=== PATIENT | female | born 1990 | race Caucasian/White ===

== ENCOUNTER 2020-07-05 14:03 | Outpatient (CLI) | payer OTHER, SELFPAY ==
[2020-07-05 19:04] LABS: Basophils Percent Auto 0.3 % (0.2-1.2); Eosinophils Absolute Auto 0.1 K/mm3 (0-0.3); Eosinophils Percent Auto 1.3 % (0-4.4); Hematocrit 43.3 % (37.0-47.0); Hemoglobin 14.6 g/dL (12.0-15.0); Immature Granulocyte Absolute 0.02 K/mm3 (0.00-0.031); Immature Granulocyte Percent A 0.3 % (0-0.5); Lymphocytes Absolute Auto 1.27 K/mm3 (0.9-3.2); Lymphocytes Percent Auto 17.7 % (18.3-44.2); Mean Corpuscular HGB Conc 33.7 g/dl (32-36); Mean Corpuscular Hemoglobin 30.5 pg (26-34); Mean Corpuscular Volume 90.6 fl (80-100); Mean Platelet Volume 11.4 fl (7.4-10.4); Monocytes Absolute Auto 0.5 K/mm3 (0.1-0.6); Monocytes Percent Auto 6.7 % (2.6-8.5); Neutrophils Absolute Auto 5.3 K/mm3 (1.3-6.7); Neutrophils Percent Auto 73.7 % (45.5-73.1); Platelet Count Result 194 k/mm3 (150-375); Red Blood Count 4.78 M/mm3 (4.2-5.4); Red Cell Distribution Width 12.1 % (11.5-14.5); White Blood Count 7.2 K/mm3 (4.5-10.0)
== END 2020-07-05 14:04 | disposition home or self-care (01) ==
PROVIDERS: PCP Internal Medicine; Visit Provider Obstetrics & Gynecology
DX: N92.1 Excessive and frequent menstruation with irregular cycle (principal)
CPT/HCPCS: 36415; 84443; 85025

== ENCOUNTER 2020-12-07 14:09 | Outpatient (CLI) | payer OTHER, SELFPAY ==
[2020-12-07 20:05] LABS: Hematocrit 42.9 % (37.0-47.0); Hemoglobin 14.4 g/dL (12.0-15.0); Mean Corpuscular HGB Conc 33.6 g/dl (32-36); Mean Corpuscular Hemoglobin 30.4 pg (26-34); Mean Corpuscular Volume 90.7 fl (80-100); Mean Platelet Volume 11.1 fl (7.4-10.4); Platelet Count Result 217 k/mm3 (150-375); Red Blood Count 4.73 M/mm3 (4.2-5.4); Red Cell Distribution Width 12.3 % (11.5-14.5); White Blood Count 5.3 K/mm3 (4.5-10.0)
== END 2020-12-07 14:10 | disposition home or self-care (01) ==
LOC: ANHBWCLAB 14:11
PROVIDERS: PCP Internal Medicine; Visit Provider Obstetrics & Gynecology
DX: N92.1 Excessive and frequent menstruation with irregular cycle (principal)
CPT/HCPCS: 36415; 84443; 85027

== ENCOUNTER → 2021-12-14 15:19 | Outpatient (CLI) | payer BC, SELFPAY ==
--- NOTE | ~2021-12-14 | US_ITS ---
EXAMINATION: US OB <= 14 weeks fetus DATE: 12/14/2021 15:44 INDICATION: First trimester dating TECHNIQUE: Real-time pelvic transabdominal and transvaginal ultrasound was performed. COMPARISON: None. FINDINGS: The uterus measures 10.9 x 6.8 x 9.3 cm. There is an intrauterine gestational sac. There i s a 1.3 x 0.5 x 0.7 cm hypoechoic area adjacent to the gestational sac. A yolk sac is identified. Fet al heart motion is identified measuring 179 beats per minute (bpm) by M-mode Doppler. The crown rump length measures 4 cm , which correlates with an estimated gestational age of 10 weeks and 6 day (s) (+/-) 7 day(s). The right ovary is not visualized however no right adnexal abnormality is seen. The left ovary measur es 2.3 x 1.4 x 2.1 cm. There is normal vascular flow in the left ovary. There is no free fluid in the pelvis. IMPRESSION: 1. Live intrauterine with an estimated gestational age of 10 weeks and 6 day(s) (+/-) 7 day (s) and an estimated delivery date of 07/06/2022. 2. Small subchorionic hematoma. Reviewed, dictated and finalized at location A. IMPRESSION: 1. Live intrauterine with an estimated gestational age of 10 weeks an d 6 day(s) (+/-) 7 day(s) and an estimated delivery date of 07/06/2022. 2. Small subchorionic hematoma.
== END ==
PROVIDERS: PCP Student in an Organized Health Care Education/Training Program; Visit Provider Student in an Organized Health Care Education/Training Program
DX: Z32.01 Encounter for pregnancy test, result positive (principal); Z3A.10 10 weeks gestation of pregnancy
CPT/HCPCS: 76801

== ENCOUNTER 2022-02-01 16:06 | Outpatient (CLI) | payer BC, SELFPAY ==
[2022-02-01 18:02] LABS: HIV 1/2 Ab P24 Ag Result Negative (Negative)
== END 2022-02-01 16:07 | disposition home or self-care (01) ==
LOC: ANHLAB 16:08
PROVIDERS: Visit Provider Student in an Organized Health Care Education/Training Program
DX: Z34.90 Encounter for supervision of normal pregnancy, unspecified, unspecified trimester (principal); Z3A.00 Weeks of gestation of pregnancy not specified
CPT/HCPCS: 36415; 86703; 86850; 86900; 86901; G0432

== ENCOUNTER 2022-04-14 09:35 | Outpatient (CLI) | payer BC, SELFPAY ==
[2022-04-14 11:28] LABS: Basophils Percent Auto 0.3 % (0.2-1.2); Eosinophils Absolute Auto 0.1 K/mm3 (0-0.3); Eosinophils Percent Auto 0.8 % (0-4.4); Hematocrit 31.6 % (37.0-47.0); Hemoglobin 10.3 g/dL (12.0-15.0); Immature Granulocyte Absolute 0.13 K/mm3 (0.00-0.031); Immature Granulocyte Percent A 1.7 % (0-0.5); Lymphocytes Absolute Auto 1.16 K/mm3 (0.9-3.2); Lymphocytes Percent Auto 15.1 % (18.3-44.2); Mean Corpuscular HGB Conc 32.6 g/dl (32-36); Mean Corpuscular Hemoglobin 28.5 pg (26-34); Mean Corpuscular Volume 87.5 fl (80-100); Mean Platelet Volume 9.6 fl (7.4-10.4); Monocytes Absolute Auto 0.4 K/mm3 (0.1-0.6); Monocytes Percent Auto 4.6 % (2.6-8.5); Neutrophils Percent Auto 77.5 % (45.5-73.1); Platelet Count Result 193 k/mm3 (150-375); Red Blood Count 3.61 M/mm3 (4.2-5.4); Red Cell Distribution Width 13.3 % (11.5-14.5); White Blood Count 7.7 K/mm3 (4.5-10.0)
[2022-04-14 11:37] LABS: Glucose 1 Hour PP 50gm Dose 107 mg/dL
== END 2022-04-14 09:36 | disposition home or self-care (01) ==
LOC: ANHLAB 09:35
PROVIDERS: Visit Provider Student in an Organized Health Care Education/Training Program
DX: Z34.82 Encounter for supervision of other normal pregnancy, second trimester (principal); Z3A.00 Weeks of gestation of pregnancy not specified
CPT/HCPCS: 36415; 82947; 85025

== ENCOUNTER 2022-05-10 16:55 | Outpatient (CLI) | payer BC, SELFPAY ==
[2022-05-10 17:16] LABS: Basophils Percent Auto 0.2 % (0.2-1.2); Eosinophils Percent Auto 0.2 % (0-4.4); Hematocrit 32.4 % (37.0-47.0); Hemoglobin 10.4 g/dL (12.0-15.0); Immature Granulocyte Absolute 0.05 K/mm3 (0.00-0.031); Immature Granulocyte Percent A 0.6 % (0-0.5); Lymphocytes Absolute Auto 1.26 K/mm3 (0.9-3.2); Lymphocytes Percent Auto 15.4 % (18.3-44.2); Mean Corpuscular HGB Conc 32.1 g/dl (32-36); Mean Corpuscular Hemoglobin 27.4 pg (26-34); Mean Corpuscular Volume 85.3 fl (80-100); Mean Platelet Volume 9.9 fl (7.4-10.4); Monocytes Absolute Auto 0.5 K/mm3 (0.1-0.6); Monocytes Percent Auto 6.2 % (2.6-8.5); Neutrophils Absolute Auto 6.3 K/mm3 (1.3-6.7); Neutrophils Percent Auto 77.4 % (45.5-73.1); Platelet Count Result 134 k/mm3 (150-375); Red Cell Distribution Width 14.6 % (11.5-14.5); White Blood Count 8.2 K/mm3 (4.5-10.0)
[2022-05-10 18:06] LABS: HIV 1/2 Ab P24 Ag Result Negative (Negative)
[2022-05-11 11:57] LABS: Rapid Plasma Reagin Non-Reactive (NonReactive)
== END 2022-05-10 16:56 | disposition home or self-care (01) ==
LOC: ANHLAB 16:57
PROVIDERS: Visit Provider Obstetrics & Gynecology
DX: Z34.83 Encounter for supervision of other normal pregnancy, third trimester (principal); Z3A.00 Weeks of gestation of pregnancy not specified
CPT/HCPCS: 36415; 85025; 86592; 86703; G0432

== ENCOUNTER 2022-07-01 23:51 | Inpatient (IN) | payer BC, SELFPAY ==
--- NOTE | 2022-07-01 23:51 | LDADM ---
This patient, Consuelo Aquino, was admitted to Labor/Delivery/Recovery 104 on 07/01/22 at 23:51. Plans for labor, pain management and were discussed with patient. Patient/family oriented to hospital policies and general routines including ID bracelet, bed and alarms, visiting hours, pain management, procedures, bathroom and other care routines, personal items, smoking policy, room service/diet and guest tray routines, infant security routines, and visiting hours. Patient/Family are encouraged to report perceived risks to care and to ask questions if they do not understand what they are told or what they should do. See OBIX for further documentation.
[2022-07-02] VITALS (109 sets, daily range): BP systolic 92–141; BP diastolic 52–100; PULSE 61–194; RESP 16–18; TEMP 36.4–36.8; O2SAT 96–100; BMI 27.1
[2022-07-02] MEDS: DINOPROSTONE 10 MG VAG INSERT VAGINAL (00:36)
[2022-07-02 00:51] LABS: Basophils Percent Auto 0.1 % (0.2-1.2); Eosinophils Absolute Auto 0.1 K/mm3 (0-0.3); Eosinophils Percent Auto 1.6 % (0-4.4); Hematocrit 34.8 % (37.0-47.0); Hemoglobin 11.4 g/dL (12.0-15.0); Immature Granulocyte Absolute 0.05 K/mm3 (0.00-0.031); Immature Granulocyte Percent A 0.7 % (0-0.5); Immature Platelet Fraction Pct 10.3 % (0.9-11.2); Lymphocytes Absolute Auto 1.67 K/mm3 (0.9-3.2); Lymphocytes Percent Auto 22.8 % (18.3-44.2); Mean Corpuscular HGB Conc 32.8 g/dl (32-36); Mean Corpuscular Hemoglobin 27.5 pg (26-34); Mean Corpuscular Volume 83.9 fl (80-100); Mean Platelet Volume 11.2 fl (7.4-10.4); Monocytes Absolute Auto 0.4 K/mm3 (0.1-0.6); Monocytes Percent Auto 5.7 % (2.6-8.5); Neutrophils Absolute Auto 5.1 K/mm3 (1.3-6.7); Neutrophils Percent Auto 69.1 % (45.5-73.1); Platelet Count Result 143 k/mm3 (150-375); Red Blood Count 4.15 M/mm3 (4.2-5.4); Red Cell Distribution Width 16.9 % (11.5-14.5); White Blood Count 7.3 K/mm3 (4.5-10.0)
[2022-07-02] MEDS: FAMOTIDINE 20 MG/2 ML VIAL IV PUSH (05:30)
[2022-07-02] MEDS: LACTATED RINGERS 1,000 ML 125 ML IV CONT ×2 (06:58→08:12)
--- NOTE | 2022-07-02 07:16 | WPDANESEPP ---
Anes - Eval Pre Procedure Procedure: labor epidural Date/Time: 07/02/22 07:16 Surgeon: johann Preop Diagnosis: pain during labor Pre Op Diagnosis: IOL Patient Data Age: 32 Gender: F Height: 1.73 m Weight: 81 kg Last Vital Signs Temp 36.6 C 07/02/22 03:00 Pulse 91 07/02/22 07:01 Resp 17 07/02/22 03:00 BP 128/88 07/02/22 07:01 O2 Del Method Room Air 07/02/22 00:22 Allergies Allergy/AdvReac Type Severity Reaction Status Date / Time codeine Allergy Nausea Verified 07/02/22 00:27 Penicillins Allergy Hives, Verified 07/02/22 00:27 itching Home Medications Medication Instructions Recorded Confirmed Type prenat.vits,ross,rpb-ladu-wppib 1 tablet PO DAILY 12/05/21 07/02/22 History ferrous sulfate 325 mg (65 mg 325 mg PO DAILY #90 tabs 04/16/22 06/12/22 Rx iron) tablet Laboratory Tests 07/02/22 07/02/22 07/02/22 00:34 00:34 00:34 WBC 7.3 K/mm3 K/mm3 (4.5-10.0) RBC 4.15 M/mm3 L M/mm3 (4.2-5.4) Hgb 11.4 g/dL L g/dL (12.0-15.0) Hct 34.8 % L % (37.0-47.0) MCV 83.9 fl fl (80-100) MCH 27.5 pg pg (26-34) MCHC 32.8 g/dl g/dl (32-36) RDW 16.9 % H % (11.5-14.5) Plt Count 143 k/mm3 L k/mm3 (150-375) MPV 11.2 fl H fl (7.4-10.4) Immature Gran % (Auto) 0.7 % H % (0-0.5) Neut % (Auto) 69.1 % % (45.5-73.1) Lymph % (Auto) 22.8 % % (18.3-44.2) [place] % (Auto) 5.7 % % (2.6-8.5) Eos % (Auto) 1.6 % % (0-4.4) Baso % (Auto) 0.1 % L % (0.2-1.2) Lymph # (Auto) 1.67 K/mm3 K/mm3 (0.9-3.2) [place] # (Auto) 0.4 K/mm3 K/mm3 (0.1-0.6) Eos # (Auto) 0.1 K/mm3 K/mm3 (0-0.3) Baso # (Auto) 0.0 K/mm3 K/mm3 (0.0-0.1) Abs Immat Gran (auto) 0.05 K/mm3 H K/mm3 (0.00-0.031) Absolute Neuts (auto) 5.1 K/mm3 K/mm3 (1.3-6.7) Absolute Nucleated RBC 0.0 K/mm3 K/mm3 (0.0-0.012) Nucleated RBC % 0.0 % % (0.0-0.2) % Immature Plt Fraction 10.3 % % (0.9-11.2) RPR Pending Blood Type O Positive Antibody Screen Negative Patient hx anesthesia problems: none Family hx anesthesia problems: none Results Review: All pre-operative results and documents have been reviewed as part of the pre-operative evaluation. [facility] Past Medical History Medical History History of gastroesophageal reflux (GERD) Migraines Missed x1 Vaginal delivery x1 Surgical History Surgical History History of dilation and curettage 2014 [place] teeth removed Family History Family History Grandparent Diabetes mellitus Heart problem Cancer Brain tumor Father Diabetes mellitus Mother Hyperthyroidism Hypertension Grandparent Pacemaker Social History Social History Smoking status: Never smoker Alcohol intake: current Drinks per week: 1 Substance use: never Lack of Transportation: No Lack of Food: Never True Current Housing: I Have Housing Concerned About Future Housing: No Difficulty Paying Gas/Electric Bills: No Difficulty Paying for Meds: No Currently Unemployed: No Education: Bachelor's Degree Difficulty w/ Childcare or Family Care: No Spiritual care concerns: No Exam Day of Procedure 07/02/22 07:16
[2022-07-02 08:12] LABS: Rapid Plasma Reagin Non-Reactive (NonReactive)
[2022-07-02] MEDS: OXYTOCIN 30 UNITS/NS 500 ML 30 UNITS/500 ML BAG IV CONT (09:47)
[2022-07-02] MEDS: OXYTOCIN 30 UNITS/NS 500 ML 30 UNITS/500 ML BAG 125 UNITS IV CONT (11:33)
[2022-07-02] MEDS: BENZOCAINE 20% AER SPR (*SP) 56 GM CAN 1 SPRAY TOPICAL (13:12)
[2022-07-02] MEDS: WITCH HAZEL 40 PADS 1 PAD TOPICAL (13:12)
--- NOTE | 2022-07-02 14:34 | OBPPTRN ---
1329 Patient transferred to post room #281 via W/C. Support person present. Oriented to unit, room, information board, rooming in, admission packet and security measures. Patient verbalizes understanding.
[2022-07-02] MEDS: IBUPROFEN 600 MG TABLET PO (18:41)
--- NOTE | 2022-07-02 23:26 | PM.IMHP ---
H&P: HPI History of Present Illness Date/Time: 07/02/22 23:26 Chief Complaint: Medical induction of labor Narrative: Patient at 39 weeks admitted for MIL. Labs reviewed. She has been informed or risk benefit of MIL vs spontaneous onset of labor and has opted for MIL. Review of Systems Review of Systems: All systems reviewed & are unremarkable except as noted in HPI and below Constitutional: Constitutional: Reports no additional constitutional complaints and Denies headache(s) Eyes: Eyes: Denies spots in vision ENT: Reports system reviewed and no additional complaints, except as documented and Denies headache(s) Cardiovascular: Cardiovascular: Denies chest pain and Denies dyspnea Respiratory: Respiratory: Denies dyspnea Gastrointestinal: Gastrointestinal: Reports no additional gastrointestinal complaints Genitourinary: Genitourinary: Reports amenorrhea Musculoskeletal: Musculoskeletal: Reports no additional musculoskeletal complaints Integumentary/Breasts: Skin/Breast: Denies breast mass and Denies rash Neurologic: Denies headache(s) Psychiatric: Psychiatric: Reports no additional psychiatric complaints PMFSH Past Medical History Medical History History of gastroesophageal reflux (GERD) Migraines Missed x1 Vaginal delivery x1 Surgical History Surgical History History of dilation and curettage 2014 [place] teeth removed Family History Family History Grandparent Diabetes mellitus Heart problem Cancer Brain tumor Father Diabetes mellitus Mother Hyperthyroidism Hypertension Grandparent Pacemaker Social History Social History Smoking status: Never smoker Alcohol intake: current Drinks per week: 1 Substance use: never Lack of Transportation: No Lack of Food: Never True Current Housing: I Have Housing Concerned About Future Housing: No Difficulty Paying Gas/Electric Bills: No Difficulty Paying for Meds: No Currently Unemployed: No Education: Bachelor's Degree Difficulty w/ Childcare or Family Care: No Spiritual care concerns: No Meds Home Medications and Allergies Home Medications Medication Instructions Recorded Confirmed Type prenat.vits,ross,qdu-tidz-gpqih 1 tablet PO DAILY 12/05/21 07/02/22 History ferrous sulfate 325 mg (65 mg 325 mg PO DAILY #90 tabs 04/16/22 06/12/22 Rx iron) tablet Allergies Allergy/AdvReac Type Severity Reaction Status Date / Time codeine Allergy Nausea Verified 07/02/22 00:27 Penicillins Allergy Hives, Verified 07/02/22 00:27 itching Vital Signs Vital Signs - 24 hr 07/02/22 00:09 07/02/22 00:16 07/02/22 00:31 Temperature Pulse Rate 85 91 78 Respiratory Rate Blood Pressure 137/89 133/84 131/100 H Pulse Oximetry Oxygen Delivery 07/02/22 00:46 07/02/22 00:30 07/02/22 01:01 Temperature 98.3 F Pulse Rate 81 83 Respiratory Rate 16 Blood Pressure 123/72 118/72 Pulse Oximetry Oxygen Delivery 07/02/22 01:16 07/02/22 01:31 07/02/22 01:46 Temperature Pulse Rate 76 80 79 Respiratory Rate Blood Pressure 111/64 121/74 120/74 Pulse Oximetry Oxygen Delivery 07/02/22 02:01 07/02/22 02:16 07/02/22 02:32 Temperature Pulse Rate 84 83 89 Respiratory Rate Blood Pressure 119/78 117/72 110/73 Pulse Oximetry Oxygen Delivery 07/02/22 02:46 07/02/22 05:31 07/02/22 03:00 Temperature 97.9 F Pulse Rate 85 80 Respiratory Rate 17 Blood Pressure 124/91 H 131/84 Pulse Oximetry Oxygen Delivery 07/02/22 06:57 07/02/22 07:01 07/02/22 07:17 Temperature Pulse Rate 85 91 Respiratory Rate Blood Pressure 121/72 128/88 Pulse Oximetry 99 Oxygen Delivery 07/02/22 07:19 07/02/22 07:
--- NOTE | 2022-07-02 23:32 | PM.OBPNLAB ---
Pain Control Date/time seen: 07/02/22 0800 fht 135, cat 1, cervix /- AROM clear.
--- NOTE | 2022-07-02 23:34 | P.PCNOB_ITS ---
OB - Delivery Note Procedure Delivery date: 07/02/22 Procedure: spontaneous vaginal delivery Induction method: Per Cervidil Protocol Delivery augmentation: Rupture of Membranes Delivery monitor: External FHT Route of delivery: Laceration Description: Superficial (labia minora and majora hemostatic no suture needed) Specimen: No Quantitative Blood Loss (ml): 200 Anesthesia type: Epidural Disposition: Floor Complications: None Narrative: She was admitted for [facility] at 39 weeks. She had cervidil. Cervidil removed. She progressed into active labor. AROM clear. She had an uncomplicated vaginal delivery. Baby Date of : 07/02/22 Time of : 10:57 Weeks of gestation at delivery: 39 Infant gender: Male Weight (pounds): 7 Weight (ounces): 14 presentation: vertex position: Right Occiput Anterior Placenta delivery description: Spontaneous Cord Vessel Description: 3 Vessels, Clamped/Cut and Delayed Cord Clamping score one minute: 9 score five minutes: 9 AMG Delivery Billing Delivery Delivery: Delivery Charge
[2022-07-03 04:12] VITALS: BP 128/76; PULSE 63; RESP 16; TEMP 36.7; O2SAT 100
[2022-07-03 05:11] LABS: Hematocrit 32.2 % (37.0-47.0); Hemoglobin 10.3 g/dL (12.0-15.0)
[2022-07-03 07:45] VITALS: BP 121/80; PULSE 64; RESP 16; TEMP 36.6; O2SAT 100
[2022-07-03] MEDS: DOCUSATE SODIUM 100 MG CAPSULE PO (08:53)
[2022-07-03] MEDS: MULTIVIT/MIN/PREN/FOL AC/IRON TABLET 1 TAB PO (08:53)
--- NOTE | 2022-07-03 10:13 | PM.OBPNVD ---
OB - PN: Subj Subjective Date/time seen: 07/03/22 10:13 Patient comments: pain well controlled, tolerating diet and other (Decreasing lochia.) [place] baby status: doing well feeding status: exclusively bottle feeding OB - PN: Obj Data Labs 07/03/22 04:07 Labs: Laboratory Results - last 24 hr 07/03/22 04:07 Hgb 10.3 L Hct 32.2 L OB - PN A/P Assessment and Plan (1) Vaginal delivery: Code(s): O80 - Encounter for full-term uncomplicated delivery Status: Acute Assessment and Plan: PPD1. She is doing well. Baby is doing well. She request discharge. Discharge precautions discussed. Plan day: 1 Plan: routine care Comments: Patient doing well. Asymptomatic anemia. Continue routine care. Time Spent With Patient Time: Total time spent is greater than 50% in coordination of care (as documented) at patient's floor/unit and/or counseling patient: Review of Systems Review of Systems: All systems reviewed & are unremarkable except as noted in HPI and below Constitutional: Constitutional: Reports no additional constitutional complaints Cardiovascular: Cardiovascular: Denies dyspnea Respiratory: Respiratory: Denies dyspnea Gastrointestinal: Gastrointestinal: Reports no additional gastrointestinal complaints and Denies abdominal pain Genitourinary: Genitourinary: Reports no additional female genitourinary complaints Exam Const: General: no acute distress, alert and awake Resp: Effort & Inspection: normal respiratory effort GI: GI Palp: No Tenderness to palpation present (GI) Other: Fundus nontender, below umbilicus Psych: Appearance: grossly normal Affect: normal affect Other: Abd: fundus firm below umbilicus, nontender Ext: nontender
--- NOTE | 2022-07-03 10:15 | PM.OBDSVD ---
DS: Admitting Diagnosis Discharge Date 07/03/22 Admitting Diagnosis Medical induction of labor DS: Discharge Diagnosis Discharge Diagnosis Plan Intrauterine - vaginal delivery. OB - DS: Summary OB Procedures : Ultrasound OB Procedures Intrapartum: Spontaneous Vag Delivery OB Procedures: : None Peripartum Data Delivery Method: Natural Vaginal Laceration Description: Superficial complications: none Status at Discharge Functional status at discharge: independent ambulation Time Spent with Patient Time attestation: Total time spent providing and/or coordinating discharge services: Exam Const: General: cooperative Orientation/consciousness: oriented to person, oriented to place and oriented to time HENMT: Face/Nose/Sinus: Normal external nose present Eyes: General: appearance normal, both eyes and all related structures Resp: Effort & Inspection: normal respiratory effort GI: Inspection: normal to inspection Skin: General skin exam: normal color Neuro: General: oriented to person, oriented to place and oriented to time Extrem: General: normal to inspection and no calf tenderness Psych: Appearance: grossly normal Mental Status: mental status grossly normal DS: Data Data Completed and Pending Labs on day of discharge: Labs from last 24 hours 07/03/22 04:07 Hgb 10.3 L Hct 32.2 L Discharge Plan Discharge Attending physician on discharge: Jonathan Salmon Consulting providers: Annemarie Kim Discharging Clinician: Jonathan Salmon Anticipated Discharge Date/Time: 07/03/22 11:00 Patient Disposition: Home, Self-Care Activity: may shower, no straining and pelvic rest Diet: regular Discharge Instructions: Take daily vitamin. Patient Instructions: Antibiotic Form, Vaginal Delivery (DC), Vaginal Delivery (GEN) Stand Alone Forms: General Discharge Information Follow-up/Referrals: Jonathan Salmon MD [Physician] - 4 Weeks (call for appointment) Discharge Medications: Continued prenat.vits,ross,whv-sotb-fterm Tablet 1 tablet PO DAILY Discontinued ferrous sulfate 325 mg (65 mg iron) tablet 325 mg PO DAILY Qty: 90 0RF Date of admission: 07/01/22 23:51 Primary Care Provider: PHYSICIAN,SUPERVISOR MODERN LANGUAGES Admitting Provider: Jonathan Salmon Attending physician on admission: Jonathan Salmon Condition: Stable
--- NOTE | 2022-07-03 13:24 | WPDANLDPN2 ---
Anes-Prog Note L&D Date/Time: 07/03/22 13:24 Neuro status: Neuro function grossly intact. Vital Signs: Last Vital Signs Temp 36.6 C 07/03/22 07:45 Pulse 64 07/03/22 07:45 Resp 16 07/03/22 07:45 BP 121/80 07/03/22 07:45 Pulse Ox 100 07/03/22 07:45 O2 Del Method Room Air 07/03/22 08:50 Pain score (VAS): 0 I/O: Intake & Output 07/02/22 07/03/22 07/03/22 23:59 07:59 15:59 Intake Total 300 Balance 300 Patient feedback: Patient satisfied with anesthetic care.
--- NOTE | 2022-07-03 14:34 | PC.NURSE ---
[id number] Mother led the conversation with her experience and plan to feed her so far and her ability to independently latch optimally without discomfort. Reminded parents to use good handwashing technique to prevent infection. Mother is feeding appropriately for growth of and understands stimulating to eat if needed. Infant has had appropriate feedings in the last 24 hours meets the outcomes for weight, output and jaundice at this time. Mother states she is confident to continue effectively her infant at home, when to call for assistance and denies any additional assistance or education at this time. Reinforced understanding of milk production, transition of milk, signs of adequate intake, transition of stool, prevention/relief of engorgement, responsive watching for feeding cues, the different methods of stimulating infant to breastfeed 2-3 hours after the start of the last feeding, community resources, medication information reviewed per [facility] and when to call a provider using the resource of the mom and baby guide/[facility] website. Mother voiced understanding of the education shared.
[2022-07-04 10:21] VITALS: BP 133/78; PULSE 81; RESP 18; TEMP 37; O2SAT 100
== END 2022-07-03 15:35 | disposition home or self-care (01) | DRG 807 ==
LOC: ANHLDR 23:53 → ANHOB2 07-02 14:00
PROVIDERS: Admitting Provider Obstetrics & Gynecology; Visit Provider Obstetrics & Gynecology
DX: O69.82X0 Labor and delivery complicated by other cord entanglement, without compression, not applicable or unspecified (principal); Z37.0 Single live birth; Z3A.39 39 weeks gestation of pregnancy; O70.0 First degree perineal laceration during delivery
CPT/HCPCS: 36415; 85014; 85018; 85025; 85055; 86592; 86850; 86900; 86901; A9270; J2590; J2795; J7120

== ENCOUNTER 2023-07-15 09:37 | Outpatient (CLI) | payer BC, SELFPAY | END 2023-07-15 09:38 | disposition home or self-care (01) | LOC: ANHLAB 09:38 | PROVIDERS: Visit Provider Nurse Practitioner Family | DX: N91.2 Amenorrhea, unspecified (principal) | CPT/HCPCS: 36415; 84702 ==

== ENCOUNTER 2023-07-30 08:50 | Outpatient (CLI) | payer BC, SELFPAY ==
--- NOTE | ~2023-07-30 | US_ITS ---
EXAMINATION: US OB <=14 wk fetus w TV DATE: 07/30/2023 09:26 INDICATION: . Spotting. Uncertain dates. TECHNIQUE: Real-time transabdominal and transvaginal pelvic ultrasound was performed. COMPARISON: None. FINDINGS: TRANSABDOMINAL ULTRASOUND: The uterus measures 10.0 x 6.5 x 8.7 cm. TRANSVAGINAL ULTRASOUND: There is an intrauterine gestational sac. A yolk sac is identified. The fet al crown rump length measures 8 mm, which correlates with an estimated gestational age of 6 weeks and 5 day(s). heart motion is not identified by M-mode Doppler. The right ovary measures 2.2 x 1.0 x 3.3 cm. The left ovary measures 3.4 x 2.2 x 2.6 cm. There is no free fluid in the pelvis. IMPRESSION: 1. demise. Reviewed, dictated and finalized at location A. IMPRESSION: 1. demise.
== END 2023-07-30 08:51 ==
LOC: MICIMG 08:52
PROVIDERS: PCP Nurse Practitioner Family; Visit Provider Nurse Practitioner Family
DX: O36.80X0 Pregnancy with inconclusive fetal viability, not applicable or unspecified (principal); Z3A.00 Weeks of gestation of pregnancy not specified
CPT/HCPCS: 76801; 76817

== ENCOUNTER 2023-12-12 16:02 | Outpatient (CLI) | payer BC, SELFPAY ==
--- NOTE | ~2023-12-12 | US_ITS ---
EXAMINATION: US OB <= 14 weeks fetus DATE: 12/12/2023 16:26 INDICATION: First trimester with inconclusive viability. Establish dating of pregnanc y. TECHNIQUE: Real-time pelvic ultrasound utilizing transabdominal probe was performed. The danya nair radiologist was not present for the study. COMPARISON: None. FINDINGS: The uterus measures 11.7 x 7.3 x 2.4 cm. There is an intrauterine gestational sac. A yolk sac and fe edu pole are identified. The crown rump length measures 3.6 cm, which correlates with an estimated ge stational age of 10 weeks and 3 days. heart motion is identified measuring 167 beats per minute (bpm) by M-mode Doppler. The ovaries are not visualized. There is no free fluid in the pelvis. IMPRESSION: 1. Single living fetus with heart rate of 167 bpm. 2. Gestational age by ultrasound of 10 weeks 3 day(s) +/- 7 day(s) with ultrasound estimated date of delivery (GARY) of 07/06/2024. Reviewed, dictated and finalized at location A. IMPRESSION: 1. Single living fetus with heart rate of 167 bpm. 2. Gestational age by ultrasound of 10 weeks 3 day(s) +/- 7 day(s) with ultras ound estimated date of delivery (GARY) of 07/06/2024.
== END 2023-12-12 16:03 ==
LOC: MICIMG 16:03
PROVIDERS: PCP Nurse Practitioner Family; Visit Provider Obstetrics & Gynecology
DX: O36.80X0 Pregnancy with inconclusive fetal viability, not applicable or unspecified (principal); Z3A.10 10 weeks gestation of pregnancy
CPT/HCPCS: 76801

== ENCOUNTER 2023-12-28 12:21 | Outpatient (CLI) | payer BC, SELFPAY ==
[2023-12-28 13:01] LABS: Basophils Percent Auto 0.3 % (0.2-1.2); Eosinophils Percent Auto 0.4 % (0-4.4); Hematocrit 37.4 % (37.0-47.0); Immature Granulocyte Absolute 0.02 K/mm3 (0.00-0.031); Immature Granulocyte Percent A 0.3 % (0-0.5); Lymphocytes Absolute Auto 1.24 K/mm3 (0.9-3.2); Lymphocytes Percent Auto 18.5 % (18.3-44.2); Mean Corpuscular HGB Conc 34.8 g/dl (32-36); Mean Corpuscular Volume 89.3 fl (80-100); Mean Platelet Volume 10.4 fl (7.4-10.4); Monocytes Absolute Auto 0.4 K/mm3 (0.1-0.6); Neutrophils Percent Auto 74.5 % (45.5-73.1); Platelet Count Result 146 k/mm3 (150-375); Red Blood Count 4.19 M/mm3 (4.2-5.4); Red Cell Distribution Width 12.3 % (11.5-14.5); White Blood Count 6.7 K/mm3 (4.5-10.0)
[2023-12-28 13:53] LABS: Hepatitis B Surface Antigen Negative (Negative); Rubella IgG Antibody 16.1 IU/ML
[2023-12-28 13:55] LABS: HIV 1/2 Ab P24 Ag Result Negative (Negative)
[2023-12-28 14:03] LABS: Hepatitis C Virus Antibody Negative (Negative)
[2023-12-28 14:55] LABS: Appearance Urine Clear (Clear); Color Urine Yellow (Yellow)
[2023-12-28 14:56] LABS: Glucose Urine UA Negative (Negative); Protein Urine Negative (Negative)
[2023-12-28 14:57] LABS: Bilirubin Urine Negative (Negative); Blood Urine Negative (Negative); Ketones Urine Negative (Negative); Nitrate Urine Negative (Negative)
[2023-12-28 14:58] LABS: Add Urine Microscopic? YES; Leukocyte Esterase Ur Trace LEU/UL (Negative); Urobilinogen Urine 0.2 mg/dL (<2.0)
[2023-12-28 14:59] LABS: RBC Urine None seen /hpf (0-2)
[2023-12-28 15:00] LABS: Squamous Epithelial Cell Urine Occasional /hpf (Few); WBC Urine 0-3 /hpf (0-3)
[2023-12-28 15:01] LABS: Bacteria Urine Trace /hpf
[2023-12-28 19:57] LABS: Rapid Plasma Reagin Non-Reactive (NonReactive)
[2024-01-01 23:28] LABS: Hematocrit 41.3 % (35.0-45.0); MCH 30.2 pg (27.0-33.0); RDW 12.7 % (11.0-15.0)
== END 2023-12-28 12:22 | disposition home or self-care (01) ==
LOC: ANHLAB 12:24
PROVIDERS: PCP Nurse Practitioner Family; Visit Provider Obstetrics & Gynecology
DX: Z34.90 Encounter for supervision of normal pregnancy, unspecified, unspecified trimester (principal)
CPT/HCPCS: 36415; 81001; 83021; 85025; 86592; 86703; 86762; 86787; 86803; 86850; 86900; 86901; 87086; 87088; 87340; G0432

== ENCOUNTER 2024-03-30 08:30 | Outpatient (CLI) | payer BC, SELFPAY ==
[2024-03-30 10:39] LABS: Basophils Percent Auto 0.3 % (0.2-1.2); Eosinophils Absolute Auto 0.1 K/mm3 (0-0.3); Eosinophils Percent Auto 1.2 % (0-4.4); Hematocrit 32.8 % (37.0-47.0); Hemoglobin 11.2 g/dL (12.0-15.0); Immature Granulocyte Absolute 0.04 K/mm3 (0.00-0.031); Immature Granulocyte Percent A 0.7 % (0-0.5); Immature Platelet Fraction Pct 6.5 % (0.9-11.2); Lymphocytes Absolute Auto 1.37 K/mm3 (0.9-3.2); Lymphocytes Percent Auto 22.5 % (18.3-44.2); Mean Corpuscular HGB Conc 34.1 g/dl (32-36); Mean Corpuscular Hemoglobin 31.3 pg (26-34); Mean Corpuscular Volume 91.6 fl (80-100); Mean Platelet Volume 10.9 fl (7.4-10.4); Monocytes Absolute Auto 0.5 K/mm3 (0.1-0.6); Monocytes Percent Auto 7.4 % (2.6-8.5); Neutrophils Absolute Auto 4.1 K/mm3 (1.3-6.7); Neutrophils Percent Auto 67.9 % (45.5-73.1); Platelet Count Result 132 k/mm3 (150-375); Red Blood Count 3.58 M/mm3 (4.2-5.4); Red Cell Distribution Width 13.2 % (11.5-14.5); White Blood Count 6.1 K/mm3 (4.5-10.0)
[2024-03-30 10:52] LABS: Glucose 1 Hour PP 50gm Dose 52 mg/dL
== END 2024-03-30 08:31 | disposition home or self-care (01) ==
LOC: ANHLAB 08:31
PROVIDERS: PCP Nurse Practitioner Family; Visit Provider Nurse Practitioner Family
DX: Z34.90 Encounter for supervision of normal pregnancy, unspecified, unspecified trimester (principal); Z3A.00 Weeks of gestation of pregnancy not specified
CPT/HCPCS: 36415; 82947; 85025; 85055

== ENCOUNTER 2024-05-13 10:26 | Outpatient (CLI) | payer BC, SELFPAY ==
[2024-05-13 11:05] LABS: Basophils Percent Auto 0.3 % (0.2-1.2); Eosinophils Absolute Auto 0.1 K/mm3 (0-0.3); Eosinophils Percent Auto 1.1 % (0-4.4); Hematocrit 32.1 % (37.0-47.0); Hemoglobin 10.7 g/dL (12.0-15.0); Immature Granulocyte Absolute 0.07 K/mm3 (0.00-0.031); Lymphocytes Absolute Auto 1.37 K/mm3 (0.9-3.2); Lymphocytes Percent Auto 18.7 % (18.3-44.2); Mean Corpuscular HGB Conc 33.3 g/dl (32-36); Mean Corpuscular Hemoglobin 30.2 pg (26-34); Mean Corpuscular Volume 90.7 fl (80-100); Mean Platelet Volume 10.5 fl (7.4-10.4); Monocytes Absolute Auto 0.5 K/mm3 (0.1-0.6); Monocytes Percent Auto 6.1 % (2.6-8.5); Neutrophils Absolute Auto 5.3 K/mm3 (1.3-6.7); Neutrophils Percent Auto 72.8 % (45.5-73.1); Platelet Count Result 117 k/mm3 (150-375); Red Blood Count 3.54 M/mm3 (4.2-5.4); Red Cell Distribution Width 13.5 % (11.5-14.5); White Blood Count 7.3 K/mm3 (4.5-10.0)
[2024-05-13 11:54] LABS: HIV 1/2 Ab P24 Ag Result Negative (Negative)
[2024-05-13 13:34] LABS: Rapid Plasma Reagin Non-Reactive (NonReactive)
== END 2024-05-13 10:27 | disposition home or self-care (01) ==
LOC: ANHLAB 10:28
PROVIDERS: PCP Nurse Practitioner Family; Visit Provider Nurse Practitioner Obstetrics & Gynecology
DX: Z34.90 Encounter for supervision of normal pregnancy, unspecified, unspecified trimester (principal); Z3A.00 Weeks of gestation of pregnancy not specified
CPT/HCPCS: 36415; 85025; 86592; 86703; G0432

== ENCOUNTER 2024-06-29 17:06 | Inpatient (IN) | payer BC, SELFPAY ==
[2024-06-29] VITALS (19 sets, daily range): BP systolic 94–131; BP diastolic 48–86; PULSE 74–102; BMI 27.4
--- OUTSIDE RECORDS SUMMARY | 2024-06-29 17:52 | XMS_ITS | Clinical Summary ---
Author Organization [facility] A Address [address] [place] [address] Care Team Providers Care Transmission Maintenance Supervisor Name Role Phone Melchor Perez MD Primary Care Provider [phone] Allergies Active Allergy Reactions Criticality Noted Date Comments Amoxicillin Hives,Rash Reaction: Hives, Skin Rash, Cephalosporins Hives Medium 10/11/2008 Note: CECLOR Penicillins Hives,Rash Reaction: Hives, Skin Rash, Medications [id number] 25 mg iron-1 mg -400 mg combo pack Take by mouth Active aspirin 81 mg enteric coated tablet Take 1 tablet (81 mg total) by mouth daily Active Active Problems Problem Noted Date Diagnosed Date Mixed hyperlipidemia 09/02/2017 Estimated Date of Delivery Comme nts Yes 07/04/2024 Resolved Problems Problem Noted Date Diagnosed Date Resolved Date Chronic tension-type headach e, not intractable 09/02/2017 08/10/2020 Sore throat 05/14/2015 11/21/2016 Overview (08/02/2016): Sore throat Anxiety 10/09/2012 08/10/2020 Overview (11/28/2019): Note: Unchanged Secondary insomnia 10/09/2012 Overview (11/28/2019): Note: Unchanged Immunizations Immunization Administration Dates Next Due HPV, Quadrivalent 07/13/2013,05/14/2013 HPV, Unspecified 02/02/2018 Hep B, Adolescent or Pediatric 09/09/1998,1997,02/18/1998 Influenza, Quadrivalent, Spl it, Preservative Free, Intramuscular 02/17/2015 Influenza, Trivalent, IM (MDV) 02/17/2015 Influenza, Unspecified 08/11/2021(Deferr ed: Patient Refused),08/09/2020(Deferred: Patient Refused),01/28/2020(Deferred: Patient Refused),01/29/2019,02/27/2018, 018(Deferred: Patient Refused) Td, adsorbed 02/25/2003 Tdap 04/15/2015 Surgical History Surgery Date Site/Laterality Comments OTHER SURGICAL HISTORY D&C WISDOM TOOTH EXTRACTION [place] teeth removal TYMPANOSTOMY TUBE PLACEMENT Tubes in ears Family History Medical History Relation Name Comments Other Brother 2 Alive and well; Other Father Alive and well; Other Mother Hypoglycemic; Relation Name Status Comments Brother 1 Alive Brother 2 Father Alive Mother Social History Tobacco Use Types Packs/Day Years Used Date Smoking Tobacco: Never Smokeless Tobacco: Never Tobacco Cessation:Counseling Given: Not Answered Alcohol Use Standard Drinks/Week Comments No 0 (1 standard drink = 0.6 oz pur e alcohol) PHQ-2 Answer Date Recorded PHQ-2 Total Score (If total score is 3 or more points, staff should administer the PHQ-9) 0 08/11/2021 Personal Safety Answer Date Recorded Getting School Help Needed Not on file 06/18 Estimated Date of Delivery Comme nts Yes 07/04/2024 Sex and Gender Information Value Date Recorded Sex Assigned at Not on file Legal Sex Female 9:32 AM RN RESOURCE NURSE Gender Identity Not on file Sexual Orientation Not on file Obstetrics History Para Term AB IAB SAB Ectopic Multiple Livin g Live Births 1 Date Outcome GA Total Labor Labor/2nd/3rd Weight Sex Type Anes PTL Elsie A1 A5 Name Clin Current Last Filed Vital Signs Vital Sign Reading Time Taken Comments Blood Pressure 108/68 01/04/2024 5:41 PM CDT Pulse 100 01/04/2024 5:41 PM CDT Temperature 36.7 C (98 F) 01/04/2024 5:41 PM CDT Respiratory Rate 18 01/04/2024 5:41 PM CDT Oxygen Saturation 100% 01/04/2024 5:41 PM CDT Inhaled Oxygen Concentration - - Weight 74.8 kg (165 lb) 04/08/2022 7:00 PM RN RESOURCE NURSE Height 172.7 cm (5' 8 ) 01/04/2024 5:41 PM CDT Body Mass Index 25.09 04/08/2022 7:00 PM RN RESOURCE NURSE Plan of Treatment Health Maintenance Due Date Last Done Comments Cervical Cancer Screening 1988 Hepatitis C Screening 1988 Varicella Vaccines (1 of 2 - 13+ 2-dose series) 01/05/2001 Depression Screening 08/11/2022 08/11/2021, 08/09/2020, 05/21/2019, Additional history exists Regular Well Visit/Exam 18-64 08/11/2022 08/11/2021, 08/09/2020, 09/02/2018, Additional history exists Influenza Vaccine (#1) 2023 9, 02/27/2018, 02/17/2015, Additional history exists DTaP/Tdap/Td Vaccine (2 - Td or Tdap) 04/15/2025 04/15/2015, 02/25/2003 Hepatitis B Screening Completed 09/09/1998 , 04/01/1998, 02/18/1998 HPV Vaccines Completed 02/02/2018, 06/27, 05/14/2013 Pneumococcal vaccine <65 Aged Out No longer eligible based on patient's age to complete this topic Insurance [employer] OOS BLUE ACCESS OOS Care Teams Transmission Maintenance Supervisor Relationship Specialty Start Date End Date Melchor Perez MD PCP - General 09/02/15
--- OUTSIDE RECORDS SUMMARY | 2024-06-29 17:52 | XMS_ITS | Encounter Summary ---
Author Organization [facility] Address [address] [place] [address] Phone Care Team Providers Care Home Supervisor Name Role Phone Melchor Perez MD Primary Care Provider [phone] Encounter Details Date Type Department Care Team (Late st Contact Info) Description 09/02/2017 Orders Only [facility] ProviderCarlos MD [facility] [place] [address] Social History Tobacco Use Types Packs/Day Years Used Date Smoking Tobacco: Never Smokeless Tobacco: Never Alcohol Use Standard Drinks/Week Comments No 0 (1 standard drink = 0.6 oz pur e alcohol) Comments No Sex and Gender Information Value Date Recorded Sex Assigned at Not on file Legal Sex Female 9:32 AM SCORE CALLER Gender Identity Not on file Sexual Orientation Not on file documented as of this encounter Plan of Treatment Not on file documented as of this encounter Procedures Procedure Name Priority Date/Time Associated Diagnosis Comments DISCHARGE LABORATORY CUMULATIVE REPORT 09/02/2017 12:00 AM CDT documented in this encounter Results * DISCHARGE LABORATORY CUMULATIVE REPORT (09/02/2017 12:00 AM CDT) Narrative 09/02/2017 12:00 AM CDT Ordered by an unspecified provider. Historical Provider LAB BLOOD ORDERABLES Nesha l Result documented in this encounter Visit Diagnoses Not on filedocumented in this encounter Care Teams Home Supervisor Relationship Specialty Start Date End Date Melchor Perez MD PCP - General 09/02/15 documented as of this encounter
--- OUTSIDE RECORDS SUMMARY | 2024-06-29 17:52 | XMS_ITS | Referral Summary ---
Author Organization [facility] A Address [address] [place] [address] Care Team Providers Care Stereo Plotter Operator Name Role Phone Melchor Perez MD Primary Care Provider [phone] Allergies Active Allergy Reactions Criticality Noted Date Comments Amoxicillin Hives,Rash Reaction: Hives, Skin Rash, Cephalosporins Hives Medium 10/11/2008 Note: CECLOR Penicillins Hives,Rash Reaction: Hives, Skin Rash, Medications [id number] 25 mg iron-1 mg -400 mg [...] Patient Refused) Td, adsorbed 02/25/2003 Tdap 04/15/2015 Social History Tobacco Use Types Packs/Day Years [...] on file 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 Gender Identity Not on file Sexual Orientation Not on file Last Filed Vital Signs Vital Sign Reading Time Taken Comments Blood Pressure 108/68 01/04/2024 5:41 PM CDT Pulse 100 01/04/2024 5:41 PM CDT Temperature 36.7 C (98 F) 01/04/2024 5:41 PM CDT Respiratory Rate 18 01/04/2024 5:41 PM CDT Oxygen Saturation 100% 01/04/2024 5:41 PM CDT Inhaled Oxygen Concentration - - Weight 74.8 kg (165 lb) 04/08/2022 7:00 PM SHORTHAND TEACHER Height 172.7 cm (5' 8 ) 01/04/2024 5:41 PM CDT Body Mass Index 25.09 04/08/2022 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
--- OUTSIDE RECORDS SUMMARY | 2024-06-29 17:52 | XMS_ITS | Clinical Summary ---
Author Organization [facility] Address [address] [place] [id number] Phone Care Team Providers Care Burr Picker Name Role Phone Unavailable Primary Care Provider Unavailabl e Encounters Date Type Department Care Team Description 06/16/2024 External Device Data STL ABSTRACTION Provider, Abstract 06/01/2024 8:26 AM STOCK CLERK [facility] - 06/01/2024 11:59 PM STOCK CLERK [facility] STORE Hospital Encounter [facility] [address] [place] [address] Jonathan Salmno MD Discharge Disposition: Home or Self Care 05/20/2024 External Device Data STL ABSTRACTION Provider, Abstract 05/19/2024 External Device Data STL ABSTRACTION Provider, Abstract 04/16/2024 12:55 PM STOCK CLERK [facility] STORE - 04/16/2024 11:59 PM STOCK CLERK [facility] STORE Hospital Encounter [facility] [address] [place] [address] Renea Rushing MD Discharge Disposition: Home or Self Care from Last 3 Months Social History Tobacco Use Types Packs/Day Years Used Date Smoking Tobacco: Never Assessed Comments Unknown Sex and Gender Information Value Date Recorded Sex Assigned at Not on file Legal Sex Female 8:21 AM CDT Gender Identity Not on file Sexual Orientation Not on file Plan of Treatment Health Maintenance Due Date Last Done Comments CERVICAL CANCER SCREENING 01/05/2018 INFLUENZA VACCINE (#1) 2023 02/17/2015, 2014 DTAP/TDAP/TD VACCINES (2 - T d or Tdap) 04/15/2025 04/15/2015 HEPATITIS B VACCINES Completed 09/09/1998, 04/01/1998, 02/18/1998 HPV VACCINES Completed 02/02/2018, 06/27, 05/14/2013 Procedures Procedure Name Priority Date/Time Associated Diagnosis Comments US OB FOLLOW UP PER FETUS Routine 06/01/2024 8:51 AM STOCK CLERK [facility]ORE Encounter for ultrasound to assess growth US OB FOLLOW UP + TV Routine 04/16/2024 1:27 PM STOCK CLERK [facility] STORE Low-lying placenta in second trimester AMA (advanced maternal age) multigravida 35+, second trimester from Last 3 Months Results * US OB FOLLOW UP PER FETUS (06/01/2024 8:51 AM STOCK CLERK [facility] STORE) Anatomical Region Laterality Modality Pelvis Ultrasound 06/01/2024 8:30 AM STOCK CLERK [facility] STORE Narrative 06/01/2024 8:55 AM STOCK CLERK S[facility] STORE STL FOLLOW UP ----- Pat. Name: NACHO AQUINO Study Date: 06/01/2024 8:30am Pat. NO: [id number] Referring MD: JONATHAN SALMON MD Site: [facility] Trainer: Diana Neville RDMS : 1990 Age: 34 ----- INDICATION ----- Advanced Maternal Age (AMA), Multigravida Screening Follow-Up CODING ----- Diagnoses Z3A.35: Weeks of gestation O09.523: Supervision of elderly multigravida Z36.2: Encounter for other screening follow-up Procedures 35178: Ultrasound, uterus, real time with image documentation, follow up, transabdominal approach per fetus HISTORY ----- OB History 3. Para 1 Andrade children born living (T) 1. Miscarriages 1 T1A1L1 METHOD ----- Transabdominal ultrasound examination ----- Andrade . Number of fetuses: 1 DATING ----- GA by prior assessment 35 w + 0 d GARY by prior assessment: 07/06/2024 Ultrasound examination on: 06/01/2024 GA by U/S based upon: AC, BPD, EFW, Femur, HC GA by U/S 35 w + 5 d GARY by U/S: 07/01/2024 Method of dating: Restore dating from previous exam Assigned: based on stated GARY, selected on 03/05/2024 Assigned GA 35 w + 2 d Assigned GARY: 07/04/2024 BIOMETRY ----- BPD 87.6 mm 35w 3d 57% Hadlock OFD 120.7 mm -/- >99% Endy HC 333.9 mm 38w 1d 85% Hadlock AC 312.0 mm 35w 1d 53% Hadlock Femur 67.2 mm 34w 4d 25% Hadlock HC / AC 1.07 74% Nicolaides Weight Calculation: EFW 2,648 g 35w 2d 49% Hadlock EFW (lb,oz) 5 lb 13 oz EFW by Hadlock ([id number]) Head / Face / Neck Biometry: Content Strategy Lead 5.3 mm Extremities / Bony Struc Biometry: FL / BPD 0.77 FL / HC 0.20 FL / AC 0.22 GENERAL EVALUATION ----- Cardiac activity present. FHR 125 bpm. movements: present. Presentation: cephalic Placenta: Placental site: anterior Umbilical cord: Cord vessels: 3 vessel cord. Insertion site: placental insertion: normal Amniotic fluid: Amount of AF: normal amount. MVP 6.6 cm. DAYAMI 17.1 cm. Q1 3.5 cm, Q2 2.6 cm, Q3 4.4 cm, Q4 6.6 cm ANATOMY ----- The following structures appear normal: Head / Neck Cranium. Lateral ventricles. Choroid plexus. Midline falx. Cavum septi pellucidi. Heart / Thorax Diaphragm. Abdomen Stomach. Kidneys. Bladder. GROWTH OVERVIEW ----- Exam date GA BPD (mm) HC (mm) AC (mm) FL (mm) HL (mm) EFW (g) 03/05/2024 22w 5d 55.5 54% 208.4 45% 193.4 82% 39.0 33% 36.1 36% 583 71% 04/16/2024 28w 5d 72.7 53% 282.3 83% 260.3 84% 56.1 58% 1,485 81% 06/01/2024 35w 2d 87.6 57% 333.9 85% 312.0 53% 67.2 25% 2,648 49% COMMENT ----- Patient's name and date of were verified by the production crew supervisor prior to the exam IMPRESSION ----- Impression: Andrade viable intrauterine at 35w 2d in cephalic presentation. Estimated weight is 2648 g (49%ile) with abdominal circumference at the 53%ile. Amniotic fluid volume is normal amount (Amniotic fluid index = 17.1 cm, maximum vertical pocket = 6.6 cm). Recommendation: Follow up as clinically indicated. Thank you for inviting us to participate in your patient's care. Procedure Note Alexa Melendrez MD - 06/01/2024 STL FOLLOW UP ----- Deborah. Name:Corina AQUINO Date:06/01/2024 8:30am Pat. NO: [id number] MD:JONATHAN SALMON MD [facility]Diana Neville RDMS :1990Age:34 ----- INDICATION ----- Advanced Maternal Age (AMA), Multigravida Screening Follow-Up CODING ----- Diagnoses Z3A.35: Weeks of gestation O09.523: Supervision of elderly multigravida Z36.2: Encounter for other screeningfollow-up Procedures 03136: Ultrasound, uterus, real time withimage documentation, follow up, transabdominal approach per fetus HISTORY ----- OB History 3. Para 1 Andrade children born living (T) 1. Miscarriages1 T1A1L1 METHOD ----- Transabdominal ultrasound examination ----- Andrade . Number of fetuses: 1 DATING ----- GA by prior [id number] w + 0 d GARY by prior assessment:07/06/2024 Ultrasound examination on:06/01/2024 GA by U/S based upon:AC, BPD, EFW, Femur, HC GA by U/S35 w + 5 d GARY by U/S:07/01/2024 Method of dating:Restore dating from previous exam Assigned:based on stated GARY, selected on 03/05/2024 Assigned GA35 w + 2 d Assigned GARY:07/04/2024 BIOMETRY ----- BPD 87.6 mm 35w 3d 57%Hadlock OFD 120.7 mm -/- >99%Endy HC 333.9 mm 38w 1d 85%Hadlock AC 312.0 mm 35w 1d 53%Hadlock Femur 67.2 mm 34w 4d 25%Hadlock HC / AC 1.07 74%Nicolaides Weight Calculation: EFW 2,648 g 35w 2d49% Hadlock EFW (lb,oz) 5 lb 13 oz EFW by Hadlock ([id number]-FL) Head / Face / Neck Biometry: Content Strategy Lead 5.3mm Extremities / Bony Struc Biometry: FL / BPD 0.77 FL / HC 0.20 FL / AC 0.22 GENERAL EVALUATION ----- Cardiac activity present. FHR 125 bpm. movements: present.Presentation: cephalic Placenta: Placental site: anterior Umbilical cord: Cord vessels: 3 vessel cord. Insertion site: placentalinsertion: normal Amniotic fluid: Amount of AF: normal amount. MVP 6.6 cm. DAYAMI 17.1 cm. Q13.5 cm, Q2 2.6 cm, Q3 4.4 cm, Q4 6.6 cm ANATOMY ----- The following structures appear normal: Head / Neck Cranium. Lateral ventricles. Choroid plexus.Midline falx. Cavum septi pellucidi. Heart / Thorax Diaphragm. Abdomen Stomach. Kidneys. Bladder. GROWTH OVERVIEW ----- Exam date GA BPD (mm) HC (mm) AC (mm) FL(mm) HL (mm) EFW (g) 03/05/2024 22w 5d 55.5 54% 208.4 45% 193.4 82%39.0 33% 36.1 36% 583 71% 04/16/2024 28w 5d 72.7 53% 282.3 83% 260.3 84%56.1 58% 1,485 81% 06/01/2024 35w 2d 87.6 57% 333.9 85% 312.0 53%67.2 25% 2,648 49% COMMENT ----- Patient's name and date of were verified by the production crew supervisor prior tothe exam IMPRESSION ----- Impression: Andrade viable intrauterine at 35w 2d in cephalicpresentation. Estimated weight is 2648 g (49%ile) with abdominal circumference atthe 53%ile. Amniotic fluid volume is normal amount (Amniotic fluid index = 17.1 cm,maximum vertical pocket = 6.6 cm). Recommendation: Follow up as clinically indicated. Thank you for inviting us to participate in your patient's care. us Jonathan Salmon MD US ORDERABLES Final Result * US OB FOLLOW UP + TV (04/16/2024 1:27 PM STOCK CLERK [facility]ICE STORE) Anatomical Region Laterality Modality Pelvis Ultrasound 04/16/2024 1:00 PM STOCK CLERK [facility] STORE Narrative 04/16/2024 1:29 PM STOCK CLERK S[facility]ICE STORE STL FOLLOW UP ----- Pat. Name: NACHO AQUINO Study Date: 04/16/2024 1:00pm Pat. NO: [id number] Referring MD: JONATHAN SALMON MD Site: [facility] Trainer: Helen Pérez RDMS : 1990 Age: 34 ----- INDICATION ----- Advanced Maternal Age (AMA), Multigravida Screening Follow-Up CODING ----- Diagnoses Z3A.28: Weeks of gestation O09.523: Supervision of elderly multigravida Z36.2: Encounter for other screening follow-up Procedures 26729: Ultrasound, uterus, real time with image documentation 79052: Ultrasound, uterus, real time with image documentation, follow up, transabdominal approach per fetus HISTORY ----- OB History 3. Para 1 Andrade children born living (T) 1. Miscarriages 1 T1A1L1 METHOD ----- Transabdominal and transvaginal ultrasound examination ----- Andrade . Number of fetuses: 1 DATING ----- GA by prior assessment 28 w + 3 d GARY by prior assessment: 07/06/2024 Ultrasound examination on: 04/16/2024 GA by U/S based upon: AC, BPD, EFW, Femur, HC GA by U/S 29 w + 6 d GARY by U/S: 06/26/2024 Method of dating: Restore dating from previous exam Assigned: based on stated GARY, selected on 03/05/2024 Assigned GA 28 w + 5 d Assigned GARY: 07/04/2024 BIOMETRY ----- BPD 72.7 mm 29w 1d 53% Hadlock OFD 103.9 mm 34w 0d >99% Endy HC 282.3 mm 31w 0d 83% Hadlock AC 260.3 mm 30w 1d 84% Hadlock Femur 56.1 mm 29w 4d 58% Hadlock HC / AC 1.08 42% Nicolaides Weight Calculation: EFW 1,485 g 29w 4d 81% Hadlock EFW (lb,oz) 3 lb 4 oz EFW by Hadlock ([id number]-FL) Head / Face / Neck Biometry: Content Strategy Lead 6.4 mm Extremities / Bony Struc Biometry: FL / BPD 0.77 FL / HC 0.20 FL / AC 0.22 GENERAL EVALUATION ----- Cardiac activity present. FHR 146 bpm. movements: present. Presentation: cephalic Placenta: Placental site: anterior Umbilical cord: Cord vessels: 3 vessel cord. Insertion site: placental insertion: normal Amniotic fluid: Amount of AF: normal amount. MVP 5.3 cm. DAYAMI 15.1 cm. Q1 2.5 cm, Q2 3.9 cm, Q3 3.3 cm, Q4 5.3 cm MATERNAL STRUCTURES ----- Cervix Normal Approach - Transvaginal ANATOMY ----- The following structures appear normal: Head / Neck Cranium. Lateral ventricles. Cavum septi pellucidi. Heart / Thorax 4-chamber view. RVOT view. LVOT view. Diaphragm. Abdomen Stomach. Kidneys. Bladder. GROWTH OVERVIEW ----- Exam date GA BPD (mm) HC (mm) AC (mm) FL (mm) HL (mm) EFW (g) 03/05/2024 22w 5d 55.5 54% 208.4 45% 193.4 82% 39.0 33% 36.1 36% 583 71% 04/16/2024 28w 5d 72.7 53% 282.3 83% 260.3 84% 56.1 58% 1,485 81% COMMENT ----- Patient's name and date of were verified by the production crew supervisor prior to the exam. Janeth RAMIREZ was present for the transvaginal ultrasound and served as a roll mechanic. IMPRESSION ----- 1. Single living fetus with a gestational age of 28w 5d, based on the reported clinical dates. 2. Current growth parameters are consistent with the stated EDC. The size is appropriate for gestational age at 81% percentile (1485 g). 3. Unremarkable limited anatomy noted. A detailed anatomy cannot be performed secondary to advanced gestational age. However, there are no gross structural abnormalities noted. 4. The amniotic fluid is normal for gestational age (MVP:5.3 cm , DAYAMI:15.1 cm ). 5. Anterior placenta. No previa/not low-lying. 6. cephalic presentation. Recommendations: - Further imaging as indicated. - Recommend interval 32-36 week growth and anatomy ultrasound assessment. Thank you for allowing us to participate in the care of this patient. Procedure Note Reba Emerson MD - 04/16/2024 STL FOLLOW UP ----- Name:Corina AQUINO Date:04/16/2024 1:00pm Pat. NO: [id number] MD:JONATHAN SALMON MD [facility]Helen Pérez RDMS :1990Age:34 ----- INDICATION ----- Advanced Maternal Age (AMA), Multigravida Screening Follow-Up CODING ----- Diagnoses Z3A.28: Weeks of gestation O09.523: Supervision of elderly multigravida Z36.2: Encounter for other screeningfollow-up Procedures 00947: Ultrasound, uterus, real time withimage documentation 47646: Ultrasound, uterus, real time withimage documentation, follow up, transabdominal approach per fetus HISTORY ----- OB History 3. Para 1 Andrade children born living (T) 1. Miscarriages1 T1A1L1 METHOD ----- Transabdominal and transvaginal ultrasound examination ----- Andrade . Number of fetuses: 1 DATING ----- GA by prior [id number] w + 3 d GARY by prior assessment:07/06/2024 Ultrasound examination on:04/16/2024 GA by U/S based upon:AC, BPD, EFW, Femur, HC GA by U/S29 w + 6 d GARY by U/S:06/26/2024 Method of dating:Restore dating from previous exam Assigned:based on stated GARY, selected on 03/05/2024 Assigned GA28 w + 5 d Assigned GARY:07/04/2024 BIOMETRY ----- BPD 72.7 mm 29w 1d 53%Hadlock OFD 103.9 mm 34w 0d >99%Endy HC 282.3 mm 31w 0d 83%Hadlock AC 260.3 mm 30w 1d 84%Hadlock Femur 56.1 mm 29w 4d 58%Hadlock HC / AC 1.08 42%Nicolaides Weight Calculation: EFW 1,485 g 29w 4d81% Hadlock EFW (lb,oz) 3 lb 4 oz EFW by Hadlock ([id number]) Head / Face / Neck Biometry: Content Strategy Lead 6.4mm Extremities / Bony Struc Biometry: FL / BPD 0.77 FL / HC 0.20 FL / AC 0.22 GENERAL EVALUATION ----- Cardiac activity present. FHR 146 bpm. movements: present.Presentation: cephalic Placenta: Placental site: anterior Umbilical cord: Cord vessels: 3 vessel cord. Insertion site: placentalinsertion: normal Amniotic fluid: Amount of AF: normal amount. MVP 5.3 cm. DAYAMI 15.1 cm. Q12.5 cm, Q2 3.9 cm, Q3 3.3 cm, Q4 5.3 cm MATERNAL STRUCTURES ----- Cervix Normal Approach - Transvaginal ANATOMY ----- The following structures appear normal: Head / Neck Cranium. Lateral ventricles. Cavum septipellucidi. Heart / Thorax 4-chamber view. RVOT view. LVOT view. Diaphragm. Abdomen Stomach. Kidneys. Bladder. GROWTH OVERVIEW ----- Exam date GA BPD (mm) HC (mm) AC (mm) FL(mm) HL (mm) EFW (g) 03/05/2024 22w 5d 55.5 54% 208.4 45% 193.4 82%39.0 33% 36.1 36% 583 71% 04/16/2024 28w 5d 72.7 53% 282.3 83% 260.3 84%56.1 58% 1,485 81% COMMENT ----- Patient's name and date of were verified by the production crew supervisor prior tothe exam. Janeth RAMIREZ was present for the transvaginal ultrasound and served as achaperone. IMPRESSION ----- 1. Single living fetus with a gestational age of 28w 5d, based on thereported clinical dates. 2. Current growth parameters are consistent with the stated EDC. The fetalsize is appropriate for gestational age at 81% percentile (1485 g). 3. Unremarkable limited anatomy noted. A detailed anatomycannot be performed secondary to advanced gestational age. However, there are no gross structural abnormalities noted. 4. The amniotic fluid is normal for gestational age (MVP:5.3 cm , DAYAMI:15.1cm ). 5. Anterior placenta. No previa/not low-lying. 6. cephalic presentation. Recommendations: - Further imaging as indicated. - Recommend interval 32-36 week growth and anatomy ultrasoundassessment. Thank you for allowing us to participate in the care of this patient. us Renea Rushing MD US ORDERABLES Final Result from Last 3 Months Insurance BLUE ACCESS/TRUE BLUE PPO
--- NOTE | 2024-06-29 17:55 | LDADM ---
This patient, Consuelo Aquino, was admitted to Labor/Delivery/Recovery 108 on 06/29/24 at 17:06. Plans for labor, pain management and were discussed with patient. Patient/family oriented to hospital policies and general routines including ID bracelet, bed and alarms, visiting hours, pain management, procedures, bathroom and other care routines, personal items, smoking policy, room service/diet and guest tray routines, infant security routines, and visiting hours. Patient/Family are encouraged to report perceived risks to care and to ask questions if they do not understand what they are told or what they should do. See OBIX for further documentation.
[2024-06-29 18:05] LABS: Basophils Percent Auto 0.3 % (0.2-1.2); Eosinophils Absolute Auto 0.1 K/mm3 (0-0.3); Eosinophils Percent Auto 0.7 % (0-4.4); Hemoglobin 11.3 g/dL (12.0-15.0); Immature Granulocyte Absolute 0.03 K/mm3 (0.00-0.031); Immature Granulocyte Percent A 0.4 % (0-0.5); Immature Platelet Fraction Pct 7.7 % (0.9-11.2); Lymphocytes Percent Auto 21.9 % (18.3-44.2); Mean Corpuscular HGB Conc 33.2 g/dl (32-36); Mean Corpuscular Hemoglobin 28.4 pg (26-34); Mean Corpuscular Volume 85.4 fl (80-100); Mean Platelet Volume 10.8 fl (7.4-10.4); Monocytes Absolute Auto 0.4 K/mm3 (0.1-0.6); Monocytes Percent Auto 4.9 % (2.6-8.5); Neutrophils Absolute Auto 5.2 K/mm3 (1.3-6.7); Neutrophils Percent Auto 71.8 % (45.5-73.1); Platelet Count Result 131 k/mm3 (150-375); Red Blood Count 3.98 M/mm3 (4.2-5.4); Red Cell Distribution Width 13.8 % (11.5-14.5); White Blood Count 7.3 K/mm3 (4.5-10.0)
[2024-06-29] MEDS: miSOPROStol 25 MCG TABLET BUCCAL ×2 (18:19→22:27)
[2024-06-29 18:45] LABS: Syphilis IgG/IgM Antibody Negative (Negative)
[2024-06-29 18:58] LABS: HIV 1/2 Ab P24 Ag Result Negative (Negative)
--- NOTE | 2024-06-29 19:30 | WPDANESEPP ---
Anes - Eval Pre Procedure Procedure: labor pain management Date/Time: 06/29/24 19:30 Surgeon: Viky Preop Diagnosis: pain during labor Pre Op Diagnosis: IOL Patient Data Age: 34 Gender: F Height: 1.73 m Weight: 81.8 kg Last Vital Signs Pulse 79 06/29/24 19:30 BP 120/83 06/29/24 19:30 O2 Del Method Room Air 06/29/24 18:14 Allergies Allergy/AdvReac Type Severity Reaction Status Date / Time codeine Allergy Nausea Verified 06/23/24 10:03 Penicillins Allergy Hives, Verified 06/23/24 10:03 itching Home Medications ?Medication ?Instructions ?Recorded ?Confirmed ?Type prenat.vits,ross,bvd-aiwn-wbviz 1 tablet PO DAILY 12/05/21 06/19/24 History aspirin 81 mg tablet,delayed 81 mg PO DAILY 02/13/24 06/19/24 History release ferrous sulfate 325 mg (65 mg 325 mg PO DAILY 04/17/24 06/19/24 History iron) tablet Laboratory Tests 06/29/24 17:47 WBC 7.3 K/mm3 (4.5-10.0) RBC 3.98 L M/mm3 (4.2-5.4) Hgb 11.3 L g/dL (12.0-15.0) Hct 34.0 L % (37.0-47.0) MCV 85.4 fl (80-100) MCH 28.4 pg (26-34) MCHC 33.2 g/dl (32-36) RDW 13.8 % (11.5-14.5) Plt Count 131 L k/mm3 (150-375) MPV 10.8 H fl (7.4-10.4) Immature Gran % (Auto) 0.4 % (0-0.5) Neut % (Auto) 71.8 % (45.5-73.1) Lymph % (Auto) 21.9 % (18.3-44.2) [place] % (Auto) 4.9 % (2.6-8.5) Eos % (Auto) 0.7 % (0-4.4) Baso % (Auto) 0.3 % (0.2-1.2) Lymph # (Auto) 1.60 K/mm3 (0.9-3.2) [place] # (Auto) 0.4 K/mm3 (0.1-0.6) Eos # (Auto) 0.1 K/mm3 (0-0.3) Baso # (Auto) 0.0 K/mm3 (0.0-0.1) Abs Immat Gran (auto) 0.03 K/mm3 (0.00-0.031) Absolute Neuts (auto) 5.2 K/mm3 (1.3-6.7) Absolute Nucleated RBC 0.000 K/mm3 (0.0-0.012) Nucleated RBC % 0.0 % (0.0-0.2) % Immature Plt Fraction 7.7 % (0.9-11.2) Syphilis IgG/IgM Ab Negative (Negative) HIV 1&2 Ab/P24 Ag 4thGn Negative (Negative) Blood Type O Positive Antibody Screen Pending Patient hx anesthesia problems: none Family hx anesthesia problems: none Results Review: All pre-operative results and documents have been reviewed as part of the pre-operative evaluation. [facility] Past Medical History Medical History Vaginal delivery x1 Missed x1 Migraines History of gastroesophageal reflux (GERD) Surgical History Surgical History Munday teeth removed History of dilation and curettage 2013 Family History Family History Grandparent Diabetes mellitus Heart problem Cancer Brain tumor Father Diabetes mellitus Acute arthritis Mother Hyperthyroidism Hypertension Grandparent Pacemaker Social History Social History Smoking status: Never smoker Alcohol intake: never Substance use: never Do You Feel Safe in your Home?: Yes Lack of Transportation: No Lack of Food: Sometimes True Current Housing: I Have Housing Concerned About Future Housing: No Difficulty Paying Gas/Electric Bills: No Difficulty Paying for Meds: No Currently Unemployed: No Education: Bachelor's Degree Difficulty w/ Childcare or Family Care: No Living arrangements: with family Occupation/Education: occupation Gender identity (if verbalized by the patient): Female Sexual Orientation (if Verbalized by the Patient): Straight or Heterosexual Spiritual care concerns: No Exam Day of Procedure 06/29/24 19:30
[2024-06-30] VITALS (104 sets, daily range): BP systolic 95–140; BP diastolic 53–89; PULSE 65–171; RESP 16–18; TEMP 36.6–37.3; O2SAT 72–100
[2024-06-30] MEDS: LACTATED RINGERS 1,000 ML 125 ML IV CONT ×2 (00:45→03:59)
[2024-06-30] MEDS: OXYTOCIN 30 UNITS/NS 500 ML 30 UNITS/500 ML BAG 999 UNITS IV CONT (06:54)
--- NOTE | 2024-06-30 07:10 | PM.OBPRVD ---
OB - Vaginal Delivery Note Procedure Delivery date: 07/01/24 Events: Elective Induction of Labor and Other (Advanced maternal age) Induction method: Per Misoprostol Protocol Delivery monitor: External FHT Route of delivery: Laceration Description: None Specimen: No Quantitative Blood Loss (ml): 200 Anesthesia type: Epidural Disposition: Floor Complications: No immediate complications Narrative: She was admitted for MIL with cytotec. She progressed into active labor with cytotec. She had SROM clear. She had epidural placed on request. She dilated to complete. She pushed a few times and delivered a male over intact perineum. Nose and mouth suctioned at perineum with bulb. The rest of fetus delivered and placed on maternal abdomen vigorously crying. Delayed cord clamping and then cord doubly clamped and cut. Pitocin started. Placenta delivered spontaneously and intact. Baby Date of : 06/30/24 Time of : 06:51 Gestational Age by Date: 39 Infant gender: Male Weight (pounds): 7 Weight (ounces): 10 presentation: vertex position: Right Occiput Anterior Placenta delivery description: Spontaneous Cord Vessel Description: 3 Vessels, Clamped/Cut and Delayed Cord Clamping score one minute: 9 score five minutes: 10
--- NOTE | 2024-06-30 07:11 | P.HP_ITS ---
H&P: HPI History of Present Illness Date/Time: 06/30/24 07:11 Chief Complaint: Induction of labor Narrative: She was admitted for medical induction of labor. She is a 34 y/o at 39 weeks with an edc of 07/07/23. PNC significant for AMA. Review of Systems Review of Systems: All systems reviewed & are unremarkable except as noted in HPI and below Constitutional: Constitutional: Reports no additional constitutional complaints and Denies headache(s) Eyes: Eyes: Denies spots in vision ENT: Reports system reviewed and no additional complaints, except as documented and Denies headache(s) Cardiovascular: Cardiovascular: Denies chest pain and Denies dyspnea Respiratory: Respiratory: Denies dyspnea Gastrointestinal: Gastrointestinal: Reports no additional gastrointestinal complaints Genitourinary: Genitourinary: Reports amenorrhea Musculoskeletal: Musculoskeletal: Reports no additional musculoskeletal complaints Integumentary/Breasts: Skin/Breast: Denies breast mass and Denies rash Neurologic: Denies headache(s) Psychiatric: Psychiatric: Reports no additional psychiatric complaints [facility] Past Medical History Medical History Vaginal delivery x1 Missed x1 Migraines History of gastroesophageal reflux (GERD) Surgical History Surgical History [place] teeth removed History of dilation and curettage 2014 Family History Family History Grandparent Diabetes mellitus Heart problem Cancer Brain tumor Father Diabetes mellitus Acute arthritis Mother Hyperthyroidism Hypertension Grandparent Pacemaker Social History Social History Smoking status: Never smoker Alcohol intake: never Substance use: never Do You Feel Safe in your Home?: Yes Lack of Transportation: No Lack of Food: Sometimes True Current Housing: I Have Housing Concerned About Future Housing: No Difficulty Paying Gas/Electric Bills: No Difficulty Paying for Meds: No Currently Unemployed: No Education: Bachelor's Degree Difficulty w/ Childcare or Family Care: No Living arrangements: with family Occupation/Education: occupation Gender identity (if verbalized by the patient): Female Sexual Orientation (if Verbalized by the Patient): Straight or Heterosexual Spiritual care concerns: No Meds Home Medications and Allergies Home Medications ?Medication ?Instructions ?Recorded ?Confirmed ?Type prenat.vits,ross,plh-[id number] 1 tablet PO DAILY 12/05/21 06/19/24 History aspirin 81 mg tablet,delayed 81 mg PO DAILY 02/13/24 06/19/24 History release ferrous sulfate 325 mg (65 mg 325 mg PO DAILY 04/17/24 06/19/24 History iron) tablet Allergies Allergy/AdvReac Type Severity Reaction Status Date / Time codeine Allergy Nausea Verified 06/23/24 10:03 Penicillins Allergy Hives, Verified 06/23/24 10:03 itching Vital Signs Vital Signs - 24 hr 06/29/24 18:14 06/29/24 18:57 06/29/24 19:00 Temperature Pulse Rate 78 79 Blood Pressure 124/72 119/74 Pulse Oximetry Oxygen Delivery Room Air 06/29/24 19:15 06/29/24 19:30 06/29/24 19:45 Temperature Pulse Rate 93 79 75 Blood Pressure 128/80 120/83 126/84 Pulse Oximetry Oxygen Delivery 06/29/24 20:00 06/29/24 20:15 06/29/24 20:30 Temperature Pulse Rate 83 87 85 Blood Pressure 120/76 130/78 125/80 Pulse Oximetry Oxygen Delivery 06/29/24 20:45 06/29/24 21:47 06/29/24 21:51 Temperature Pulse Rate 88 83 89 Blood Pressure 127/76 123/81 Pulse Oximetry Oxygen Delivery 06/29/24 22:00 06/29/24 22:15 06/29/24 22:30 Temperature Pulse Rate 97 83 86 Blood Pressure 109/81 119/72 122/78 Pulse Oximetry Oxygen Delivery 06/29/24 22:45 06/29/24 23:00 06/29/24 23:16 Temperature Pulse Rate 98 102 H 84 Blood Pressure 131/76 100/86 110/86 Pulse Oximetry Oxygen Delivery 06/29/24 23:30 06/29/24 23:45 06/30/24 00:01 Temperature Pulse Rate 79 74 171 H Blood Pressure 97/68 L 94/48 L Pulse Oximetry Oxygen Delivery 06/30/24 00:30 06/30/24 00:45 06/30/24 01:00 Temperature Pulse Rate 95 87 85 Blood Pressure 108/83 120/84 117/87 Pulse Oximetry Oxygen Delivery 06/30/24 01:15 06/30/24 01:30 06/30/24 01:45 Temperature Pulse Rate 87 81 83 Blood Pressure 129/82 115/70 121/82 Pulse Oximetry Oxygen Delivery 06/30/24 02:00 06/30/24 02:16 06/30/24 02:30 Temperature Pulse Rate 78 93 73 Blood Pressure 110/89 120/77 110/69 Pulse Oximetry Oxygen Delivery 06/30/24 02:45 06/30/24 03:00 06/30/24 03:39 Temperature 98.2 F Pulse Rate 81 96 Blood Pressure 121/79 126/89 Pulse Oximetry 100 Oxygen Delivery 06/30/24 03:44 06/30/24 03:46 06/30/24 03:48 Temperature Pulse Rate 78 75 Blood Pressure 106/69 112/79 Pulse Oximetry 100 Oxygen Delivery 06/30/24 03:49 06/30/24 03:50 06/30/24 03:53 Temperature Pulse Rate 80 78 Blood Pressure 122/89 101/66 Pulse Oximetry 100 Oxygen Delivery 06/30/24 03:54 06/30/24 03:55 06/30/24 03:58 Temperature Pulse Rate 76 86 Blood Pressure 115/75 118/76 Pulse Oximetry 100 Oxygen Delivery 06/30/24 03:59 06/30/24 04:00 06/30/24 04:03 Temperature Pulse Rate 85 81 Blood Pressure 110/76 112/76 Pulse Oximetry 100 Oxygen Delivery 06/30/24 04:04 06/30/24 04:05 06/30/24 04:08 Temperature Pulse Rate 81 91 Blood Pressure 114/81 116/80 Pulse Oximetry 100 Oxygen Delivery 06/30/24 04:09 06/30/24 04:11 06/30/24 04:13 Temperature Pulse Rate 75 83 Blood Pressure 110/60 113/72 Pulse Oximetry 100 Oxygen Delivery 06/30/24 04:14 06/30/24 04:15 06/30/24 04:18 Temperature Pulse Rate 73 79 Blood Pressure 117/84 116/67 Pulse Oximetry 100 Oxygen Delivery 06/30/24 04:19 06/30/24 04:20 06/30/24 04:22 Temperature Pulse Rate 74 85 Blood Pressure 117/73 111/67 Pulse Oximetry 100 Oxygen Delivery 06/30/24 04:24 06/30/24 04:25 06/30/24 04:28 Temperature Pulse Rate 70 67 Blood Pressure 111/68 113/67 Pulse Oximetry 100 Oxygen Delivery 06/30/24 04:29 06/30/24 04:34 06/30/24 04:39 Temperature Pulse Rate Blood Pressure Pulse Oximetry 100 100 100 Oxygen Delivery 06/30/24 04:44 06/30/24 04:45 06/30/24 04:49 Temperature Pulse Rate 67 Blood Pressure 102/53 L Pulse Oximetry 100 99 Oxygen Delivery 06/30/24 04:54 06/30/24 04:59 06/30/24 05:04 Temperature Pulse Rate Blood Pressure Pulse Oximetry 99 99 100 Oxygen Delivery 06/30/24 05:07 06/30/24 05:09 06/30/24 05:14 Temperature 98.3 F Pulse Rate Blood Pressure Pulse Oximetry 100 97 Oxygen Delivery 06/30/24 05:15 06/30/24 05:19 06/30/24 05:24 Temperature Pulse Rate 65 Blood Pressure 99/65 L Pulse Oximetry 97 96 Oxygen Delivery 06/30/24 05:29 06/30/24 05:30 06/30/24 05:34 Temperature Pulse Rate 68 Blood Pressure 95/64 L Pulse Oximetry 97 100 Oxygen Delivery 06/30/24 05:39 06/30/24 05:44 06/30/24 05:45 Temperature Pulse Rate 89 Blood Pressure 125/81 Pulse Oximetry 100 100 Oxygen Delivery 06/30/24 05:49 06/30/24 05:54 06/30/24 05:59 Temperature Pulse Rate Blood Pressure Pulse Oximetry 100 100 100 Oxygen Delivery 06/30/24 06:00 06/30/24 06:04 06/30/24 06:09 Temperature Pulse Rate 72 Blood Pressure 115/67 Pulse Oximetry 100 99 Oxygen Delivery 06/30/24 06:14 06/30/24 06:15 06/30/24 06:19 Temperature Pulse Rate 82 Blood Pressure 108/69 Pulse Oximetry 100 100 Oxygen Delivery 06/30/24 06:24 06/30/24 06:29 06/30/24 06:30 Temperature Pulse Rate 87 Blood Pressure 109/74 Pulse Oximetry 100 100 Oxygen Delivery 06/30/24 06:34 06/30/24 06:39 06/30/24 06:40 Temperature Pulse Rate Blood Pressure Pulse Oximetry 100 100 100 Oxygen Delivery 06/30/24 06:45 06/30/24 06:49 06/30/24 06:51 Temperature Pulse Rate 71 Blood Pressure 115/69 Pulse Oximetry 100 72 L 99 Oxygen Delivery 06/30/24 06:51 06/30/24 06:56 06/30/24 07:00 Temperature Pulse Rate 92 Blood Pressure 117/53 L Pulse Oximetry 100 100 Oxygen Delivery 06/30/24 07:01 06/30/24 07:01 06/30/24 07:03 Temperature Pulse Rate Blood Pressure Pulse Oximetry 99 99 100 Oxygen Delivery 06/30/24 07:03 06/30/24 07:03 06/30/24 07:04 Temperature Pulse Rate Blood Pressure Pulse Oximetry 100 100 99 Oxygen Delivery 06/30/24 07:04 06/30/24 07:04 06/30/24 07:08 Temperature Pulse Rate Blood Pressure Pulse Oximetry 98 97 100 Oxygen Delivery 06/30/24 07:09 06/30/24 07:09 06/30/24 07:10 Temperature Pulse Rate Blood Pressure Pulse Oximetry 100 99 99 Oxygen Delivery Exam Const: General: no acute distress Eyes: General: appearance normal, both eyes and all related structures Resp: Effort & Inspection: normal respiratory effort Cardio: Rate: regular rate GI: Other: Gravid no fundal tenderness no right upper quadrant pain Skin: General skin exam: no rashes or lesions noted Neuro: Cognition (Neuro): normal cognition Extrem: General: normal to inspection Psych: Mental Status: mental status grossly normal H&P: Results Labs Labs: Short CBC 06/29/24 Range/Units 17:47 WBC 7.3 (4.5-10.0) K/mm3 Hgb 11.3 L (12.0-15.0) g/dL Hct 34.0 L (37.0-47.0) % Plt Count 131 L (150-375) k/mm3 Assessment and Plan Assessment and plan (1) Elective induction of labor planned: Status: Acute Assessment and Plan: 1. Admit 2. Cytotec induction.
[2024-06-30] MEDS: OXYTOCIN 30 UNITS/NS 500 ML 30 UNITS/500 ML BAG 125 UNITS IV CONT (07:26)
--- NOTE | 2024-06-30 10:42 | OBPPTRN ---
Patient transferred to post room #282 via wheelchair. Support person present. Oriented to unit, room, information board, rooming in, admission packet and security measures. Patient verbalizes understanding.
--- NOTE | 2024-06-30 14:45 | PC.NURSE ---
Mother requested assistance with waking baby. He hasn't had a good feeding since right after delivery. Primary RN says he has been gagging and spit up some thick mucous. Mom had him unwrapped and was trying to stimulate him to wake. We changed a wet and dirty diaper and then baby had a large burp but didn't spit up. He continued to look alert and awake without any efforts to root or latch. Mom knows how to handle baby and her breast and expressed large drops of colostrum into baby's mouth. At the taste of the milk he did seem more interested in feeding but still would not open his mouth to latch. Encouraged mom to continue trying to latch. Reported to primary RN.
[2024-06-30] MEDS: IBUPROFEN 600 MG TABLET PO (17:35)
[2024-07-01 04:43] LABS: Hematocrit 31.5 % (37.0-47.0); Hemoglobin 10.2 g/dL (12.0-15.0)
[2024-07-01 08:35] VITALS: BP 134/86; PULSE 93; RESP 16; TEMP 36.7; O2SAT 99
--- NOTE | 2024-07-01 08:55 | P.PNOB_ITS ---
OB - PN: Subj Subjective Date/time seen: 07/01/24 08:55 Patient comments: pain well controlled, tolerating diet and other (Decreasing lochia.) baby status: doing well and nursing well [place] feeding status: exclusively breast feeding OB - PN: Obj Data Labs 07/01/24 03:14 Labs: Laboratory Results - last 24 hr 07/01/24 03:14 Hgb 10.2 L Hct 31.5 L OB - PN A/P Plan day: 1 Plan: routine care Comments: Patient doing well. She request discharge to home today. Time Spent With Patient Time: Total time spent is greater than 50% in coordination of care (as documented) at patient's floor/unit and/or counseling patient: Exam 2 Psych: Affect: normal affect Other: Abd: fundus firm below umbilicus, nontender Perineum: healing Ext: nontender
--- NOTE | 2024-07-01 08:56 | PM.OBDSVD ---
DS: Admitting Diagnosis Discharge Date 07/01/24 Admitting Diagnosis Induction of labor DS: Discharge Diagnosis Discharge Diagnosis (1) Vaginal delivery: Code(s): O80 - Encounter for full-term uncomplicated delivery Status: Acute OB - DS: Summary Hospital Course Hospital Course: She was admitted for MIL. She had cytotec. She progressed to active labor and had an uncomplicated vaginal delivery. She and baby did well . She requested discharge to home on day 1. She was ambulating well, tolerating regular diet, adequate pain control. OB Procedures : Ultrasound OB Procedures Intrapartum: Spontaneous Vag Delivery OB Procedures: : None Peripartum Data Infant Delivery Method: Natural Vaginal Laceration Description: None complications: none Status at Discharge Functional status at discharge: independent ambulation Time Spent with Patient Time attestation: Total time spent providing and/or coordinating discharge services: Exam Const: General: cooperative Orientation/consciousness: oriented to person, oriented to place and oriented to time HENMT: Face/Nose/Sinus: Normal external nose present Eyes: General: appearance normal, both eyes and all related structures Resp: Effort & Inspection: normal respiratory effort GI: Inspection: normal to inspection Skin: General skin exam: normal color Neuro: General: oriented to person, oriented to place and oriented to time Extrem: General: normal to inspection and no calf tenderness Psych: Appearance: grossly normal Mental Status: mental status grossly normal DS: Data Data Completed and Pending Labs on day of discharge: Labs from last 24 hours 07/01/24 03:14 Hgb 10.2 L Hct 31.5 L Discharge Plan Discharge Attending physician on discharge: Jonathan Salmon Consulting providers: Nancy Espinoza Discharging Clinician: Jonathan Salmon Anticipated Discharge Date/Time: 07/01/24 08:59 Patient Disposition: Home, Self-Care Activity: may shower and pelvic rest Diet: regular Patient Instructions: Antibiotic Form Patient Language: Lebanese Stand Alone Forms: General Discharge Information Follow-up/Referrals: Jonathan Salmon MD [Physician] - 4 Weeks (call for appointment) Discharge Medications: No Action prenat.vits,ross,[id number] Tablet 1 tablet PO DAILY aspirin 81 mg tablet,delayed release (DR/EC) 81 mg PO DAILY ferrous sulfate 325 mg (65 mg iron) tablet 325 mg PO DAILY Date of admission: 06/29/24 17:06 Primary Care Provider: UNKNOWN,DOCTOR Admitting Provider: Jonathan Salmon Attending physician on admission: Jonathan Salmon Condition: Stable
[2024-07-02 10:21] VITALS: BP 124/78; PULSE 86; RESP 20; TEMP 36.8; O2SAT 99
== END 2024-07-01 12:15 | disposition home or self-care (01) | DRG 807 ==
LOC: ANHLDR 17:18 → ANHOB2 06-30 10:44
PROVIDERS: Admitting Provider Obstetrics & Gynecology; Visit Provider Obstetrics & Gynecology
DX: O80 Encounter for full-term uncomplicated delivery (principal); Z37.0 Single live birth; Z3A.39 39 weeks gestation of pregnancy
CPT/HCPCS: 36415; 85014; 85018; 85025; 85055; 86593; 86703; 86850; 86900; 86901; A9270; G0432; J2590; J2795; J7120

== ENCOUNTER 2024-10-20 10:43 | Outpatient (CLI) | payer BC, SELFPAY ==
--- NOTE | ~2024-10-20 | US_ITS ---
EXAMINATION: US thyroid DATE: 10/20/2024 10:55 INDICATION: Abnormal physical examination TECHNIQUE: Multiple ultrasound images of the thyroid were obtained. COMPARISON: None. FINDINGS: The right thyroid lobe measures 5.7 x 2.2 x 1.8 cm. The left thyroid lobe measures 4.4 x 2.0 x 1.8 cm. Within the left lobe of the thyroid gland is a 18.7 x 10.9 x 15.3 mm nodule: Composition - spongiform Echogenicity -isoechoic and hyperechoic (1) Shape - wider than tall Margin - smooth Echogenic foci - none. = TR 1, benign The isthmus measures 0.3cm in anterior to posterior dimension. There is otherwise normal echotexture and echogenicity throughout the remainder of the thyroid gland. No additional discrete nodules identified. Increased vascular flow is present. IMPRESSION: TR1 nodule in the right lobe of the thyroid gland measuring 18.7 mm in greatest dimension. This nodule is not sonographically suspicious and no FNA is recommended Follow-up may be performed. The thyroid gland is hypervascular, suggesting Graves' disease versus chronic lymphocytic thyroiditis (Saba's disease) for which clinical and serologic correlation is needed. Reviewed, dictated and finalized at location A. IMPRESSION: TR1 nodule in the right lobe of the thyroid gland measuring 18.7 mm in greatest dimension. This nodule is not sonographically suspicious and no FNA is recommended Follow-up may be performed. The thyroid gland is hypervascular, suggesting Graves' disease versus chronic l ymphocytic thyroiditis (Saba's disease) for which clinical and serologic c orrelation is needed.
== END 2024-10-20 10:44 | disposition home or self-care (01) ==
LOC: GOSHIMG 10:44
PROVIDERS: PCP Nurse Practitioner Obstetrics & Gynecology; Visit Provider Nurse Practitioner Obstetrics & Gynecology
DX: E04.9 Nontoxic goiter, unspecified (principal)
CPT/HCPCS: 76536